=== PATIENT | female | born 2000 | race Caucasian/White ===

== ENCOUNTER 2020-09-04 13:56 | Outpatient (NON) | payer OTHER, SELFPAY ==
[2020-09-04 23:56] LABS: SARS-CoV-2 RNA PCR Negative
== END 2020-09-04 13:57 ==
PROVIDERS: Visit Provider Family Medicine
DX: Z20.828 Contact with and (suspected) exposure to other viral communicable diseases (principal)
CPT/HCPCS: 87635; C9803; U0003

== ENCOUNTER 2020-12-10 15:48 | Outpatient (CLI) | payer OTHER, SELFPAY | END 2020-12-10 15:49 | disposition home or self-care (01) | LOC: CHSLAB 15:50 | PROVIDERS: PCP Family Medicine; Visit Provider Nurse Practitioner Family | DX: Z34.90 Encounter for supervision of normal pregnancy, unspecified, unspecified trimester (principal) | CPT/HCPCS: 36415; 84702 ==

== ENCOUNTER 2020-12-22 07:19 | Emergency (ER) | payer OTHER, SELFPAY ==
--- NOTE | ~2020-12-22 | US_ITS ---
EXAMINATION: US OB <= 14 weeks fetus DATE: 12/22/2020 09:06 INDICATION: Abdominal pain. TECHNIQUE: Real-time transabdominal pelvic ultrasound was performed. COMPARISON: None. FINDINGS: The uterus measures 9.8 x 5.5 x 5.2 cm. There is an intrauterine gestational sac. A yolk sac is ident ified. The crown rump length measures 1.7 cm, which correlates with an estimated gestational a ge of 8 weeks and 1 day(s) (+/-) 5 day(s). heart motion is identified measuring 171 beats per m inute (bpm) by M-mode Doppler. The right ovary is not visualized. The left ovary measures 1.5 x 1.9 x 2.1 cm. There is no free fluid in the pelvis. IMPRESSION: 1. Single living intrauterine gestation with estimated date of delivery of 08/02/2021. Reviewed, dictated and finalized at location A. [employer] IMPRESSION: 1. Single living intrauterine gestation with estimated date of delivery of 07/16.
[2020-12-22 07:32] VITALS: TEMP 36.3
--- NOTE | 2020-12-22 07:55 | ED.ABDPAIN ---
HPI - Abdominal Pain General Chief Complaint: Abdominal Pain Stated Complaint: ABD PAIN, +PREG Time Seen by Provider: 12/22/20 07:35 Source: patient History of Present Illness HPI narrative: Patient is a 20 y/o female complaining of lower abdominal pain starting several hours ago. There is no alleviating or exacerbating factor. She describes her pain as cramping and rates it as 7/10. There is no pain radiation. She had one episode of vomiting. She has no diarrhea, dysuria or vaginal bleed. Of note, she state that she is and LMP was 09/14/20. Related Data Allergies Allergy/AdvReac Type Severity Reaction Status Date / Time latex Allergy Mild Rash Verified 12/22/20 07:34 Review of Systems Constitutional: Constitutional: Denies chills, Denies fever(s), Denies headache(s) and Denies weakness Eyes: Eyes: Denies blurry vision ENT: Denies headache(s) and Denies neck pain Cardiovascular: Cardiovascular: Denies chest pain and Denies dyspnea Respiratory: Respiratory: Denies cough and Denies dyspnea Gastrointestinal: Gastrointestinal: Reports abdominal pain, Denies diarrhea, Reports nausea and Reports vomiting Genitourinary: Genitourinary: Denies hematuria and Denies dysuria Musculoskeletal: Musculoskeletal: Denies back pain and Denies neck pain Neurologic: Denies headache(s) and Denies weakness PMFSH Past Medical History Medical History (Updated 12/22/20 @ 10:45 by Elaine Patel MD) Asthma Mild severity; childhood asthma Depression Overweight Surgical History Surgical History No significant past surgical history Family History Family History Mother Diabetes mellitus Social History Social History Smoking status: Never smoker Tobacco type: cigarettes Alcohol intake: never Substance use: never Substance use type: does not use Additional living arrangements comments: Has one child. Exam Const: General: no acute distress and well developed Orientation/consciousness: oriented to person, oriented to place, oriented to time and patient oriented x3 HENMT: Head: normocephalic Ears: external ears normal General nose exam: Normal external nose present Eyes: General: appearance normal, both eyes and all related structures Conjunctivae: conjunctivae normal Neck: Neck: normal visual inspection and full ROM Chest: Chest palpation & inspection: normal inspection of the chest and no tenderness Resp: Effort & Inspection: normal respiratory effort Auscultation: clear to auscultation bilaterally Cardio: Rate: regular rate Rhythm: regular rhythm GI: GI Palp: No abdominal tenderness and Yes Soft to palpation Skin: General skin exam: normal color and turgor normal Neuro: General: oriented to person, oriented to place, oriented to time and patient oriented x3 Cognition (Neuro): normal cognition Extrem: General: normal to inspection, full ROM and no pedal edema Psych: Appearance: grossly normal Mental Status: mental status grossly normal Affect: normal affect Course Vital Signs Vital signs: Vital Signs Temperature 36.3 C L 12/22/20 07:32 Temperature 37.2 C 12/22/20 09:14 Pulse Rate 87 12/22/20 09:14 Blood Pressure 112/69 12/22/20 09:14 Pulse Oximetry 100 12/22/20 09:14 MDM - Abdominal Pain Lab Data Result diagrams: 12/22/20 07:46 12/22/20 07:46 Labs: Lab Results 12/22/20 12/22/20 12/22/20 Range/Units 07:46 07:46 07:49 WBC 12.1 H (4.5-10.0) K/mm3 RBC 4.54 (4.2-5.4) M/mm3 Hgb 13.5 (12.0-15.0) g/dL Hct 38.8 (37.0-47.0) % MCV 85.5 (80-100) fl MCH 29.7 (26-34) pg MCHC 34.8 (32-36) g/dl RDW 12.4 (11.5-14.5) % Plt Count 270 (150-375) k/mm3 MPV 9.2 (7.4-10.4) fl Immature Gran % (Auto) 0.2 (0-0.5) % Neut % (Auto)
[2020-12-22 07:57] LABS: Basophils Percent Auto 0.2 % (0.2-1.2); Eosinophils Percent Auto 0.2 % (0-4.4); Hematocrit 38.8 % (37.0-47.0); Hemoglobin 13.5 g/dL (12.0-15.0); Immature Granulocyte Absolute 0.03 K/mm3 (0.00-0.031); Immature Granulocyte Percent A 0.2 % (0-0.5); Lymphocytes Absolute Auto 1.03 K/mm3 (0.9-3.2); Lymphocytes Percent Auto 8.5 % (18.3-44.2); Mean Corpuscular HGB Conc 34.8 g/dl (32-36); Mean Corpuscular Hemoglobin 29.7 pg (26-34); Mean Corpuscular Volume 85.5 fl (80-100); Mean Platelet Volume 9.2 fl (7.4-10.4); Monocytes Absolute Auto 0.4 K/mm3 (0.1-0.6); Monocytes Percent Auto 3.1 % (2.6-8.5); Neutrophils Absolute Auto 10.6 K/mm3 (1.3-6.7); Neutrophils Percent Auto 87.8 % (45.5-73.1); Platelet Count Result 270 k/mm3 (150-375); Red Blood Count 4.54 M/mm3 (4.2-5.4); Red Cell Distribution Width 12.4 % (11.5-14.5); White Blood Count 12.1 K/mm3 (4.5-10.0)
[2020-12-22 08:08] LABS: Alanine Aminotransferase 19 U/L (4-35); Albumin Level 4.2 g/dL (3.5-5.1); Alkaline Phosphatase 54 U/L (38-126); Anion Gap 6 mmol/L (8-16); Aspartate Amino Transferase 21 U/L (14-36); Bilirubin,Total 0.2 mg/dL (0.2-1.3); Blood Urea Nitrogen 12 mg/dL (7-17); Calcium 8.8 mg/dL (8.4-10.2); Carbon Dioxide 23 mmol/L (22-30); Chloride 104 mmol/L (98-107); Estimated CRCL calculation 126 ml/min; Estimated Glomerular Filt Rate > 60; Glucose 129 mg/dL (65-105); Sodium 133 mmol/L (137-145)
[2020-12-22 08:13] LABS: Add Urine Microscopic? YES; Appearance Urine Clear (Clear); Bacteria Urine 2+ /hpf; Bilirubin Urine Negative (Negative); Blood Urine Negative (Negative); Color Urine Yellow (Yellow); Glucose Urine UA Negative (Negative); Ketones Urine Negative (Negative); Leukocyte Esterase Ur Trace LEU/UL (Negative); Mucus Urine Rare /lpf; Nitrate Urine Negative (Negative); Protein Urine Negative (Negative); RBC Urine 0-2 /hpf (0-2); Specific Grav Ur 1.019 (1.001-1.035); Squamous Epithelial Cell Urine Few /hpf (Few); Urobilinogen Urine Negative mg/dL (<2.0)
[2020-12-22 09:14] VITALS: BP 112/69; PULSE 87; TEMP 37.2; O2SAT 100
[2020-12-22 10:59] VITALS: BP 124/76; PULSE 82; O2SAT 98
== END 2020-12-22 11:00 | disposition home or self-care (01) ==
PROVIDERS: Emergency Provider Emergency Medicine; PCP Family Medicine
DX: O26.891 Other specified pregnancy related conditions, first trimester (principal); R10.2 Pelvic and perineal pain; O23.41 Unspecified infection of urinary tract in pregnancy, first trimester; O99.511 Diseases of the respiratory system complicating pregnancy, first trimester; J45.909 Unspecified asthma, uncomplicated; O99.211 Obesity complicating pregnancy, first trimester; E66.3 Overweight; Z3A.08 8 weeks gestation of pregnancy
CPT/HCPCS: 36415; 76801; 80053; 81001; 81025; 84702; 85025; 86900; 86901; 87086; 99284

== ENCOUNTER 2021-07-23 01:15 | Inpatient (IN) | payer OTHER, SELFPAY ==
[2021-07-23] VITALS (90 sets, daily range): BP systolic 90–173; BP diastolic 44–137; PULSE 68–273; RESP 16–18; TEMP 36.5–37; O2SAT 95–100; BMI 35.9
[2021-07-23 02:32] LABS: Basophils Percent Auto 0.1 % (0.2-1.2); Eosinophils Percent Auto 0.3 % (0-4.4); Hemoglobin 12.1 g/dL (12.0-15.0); Immature Granulocyte Absolute 0.06 K/mm3 (0.00-0.031); Immature Granulocyte Percent A 0.4 % (0-0.5); Lymphocytes Absolute Auto 2.15 K/mm3 (0.9-3.2); Lymphocytes Percent Auto 15.9 % (18.3-44.2); Mean Corpuscular HGB Conc 33.6 g/dl (32-36); Mean Corpuscular Volume 83.3 fl (80-100); Mean Platelet Volume 9.9 fl (7.4-10.4); Monocytes Absolute Auto 0.9 K/mm3 (0.1-0.6); Monocytes Percent Auto 6.7 % (2.6-8.5); Neutrophils Absolute Auto 10.4 K/mm3 (1.3-6.7); Neutrophils Percent Auto 76.6 % (45.5-73.1); Platelet Count Result 291 k/mm3 (150-375); Red Blood Count 4.32 M/mm3 (4.2-5.4); White Blood Count 13.5 K/mm3 (4.5-10.0)
--- NOTE | 2021-07-23 02:40 | LDADM ---
This patient, Nitesh Elizabeth, was admitted to Labor/Delivery/Recovery 105 on 07/23/21 at 01:15. Plans for labor, pain management and were discussed with patient. Patient/family oriented to hospital policies and general routines including ID bracelet, bed and alarms, visiting hours, pain management, procedures, bathroom and other care routines, personal items, smoking policy, room service/diet and guest tray routines, security routines, and visiting hours. Patient/Family are encouraged to report perceived risks to care and to ask questions if they do not understand what they are told or what they should do. See OBIX for further documentation.
[2021-07-23] MEDS: LACTATED RINGERS 1,000 ML 125 ML IV CONT ×2 (03:10→06:20)
--- NOTE | 2021-07-23 03:37 | WPDANESEPP ---
Anes - Eval Pre Procedure Procedure: labor epidural Date/Time: 07/23/21 03:37 Surgeon: ricco Preop Diagnosis: pain during labor Pre Op Diagnosis: leaking Patient Data Age: 21 Gender: F Height: 1.63 m Weight: 95 kg Last Vital Signs Pulse 95 07/23/21 03:31 BP 131/74 07/23/21 03:31 Allergies Allergy/AdvReac Type Severity Reaction Status Date / Time latex Allergy Mild Rash Verified 12/22/20 07:34 Home Medications Medication Instructions Recorded Confirmed Type vits no.126-ferrous fum 1 tablet PO DAILY #30 tablet 12/10/20 12/10/20 Rx 28 mg iron-folic acid 800 mcg tablet ondansetron 4 mg disintegrating 4 mg PO Q8H PRN #30 tablet 12/17/20 12/17/20 Rx tablet Laboratory Tests 07/23/21 07/23/21 02:23 02:23 WBC 13.5 K/mm3 H K/mm3 (4.5-10.0) RBC 4.32 M/mm3 M/mm3 (4.2-5.4) Hgb 12.1 g/dL g/dL (12.0-15.0) Hct 36.0 % L % (37.0-47.0) MCV 83.3 fl fl (80-100) MCH 28.0 pg pg (26-34) MCHC 33.6 g/dl g/dl (32-36) RDW 13.0 % % (11.5-14.5) Plt Count 291 k/mm3 k/mm3 (150-375) MPV 9.9 fl fl (7.4-10.4) Immature Gran % (Auto) 0.4 % % (0-0.5) Neut % (Auto) 76.6 % H % (45.5-73.1) Lymph % (Auto) 15.9 % L % (18.3-44.2) [place] % (Auto) 6.7 % % (2.6-8.5) Eos % (Auto) 0.3 % % (0-4.4) Baso % (Auto) 0.1 % L % (0.2-1.2) Lymph # (Auto) 2.15 K/mm3 K/mm3 (0.9-3.2) [place] # (Auto) 0.9 K/mm3 H K/mm3 (0.1-0.6) Eos # (Auto) 0.0 K/mm3 K/mm3 (0-0.3) Baso # (Auto) 0.0 K/mm3 K/mm3 (0.0-0.1) Abs Immat Gran (auto) 0.06 K/mm3 H K/mm3 (0.00-0.031) Absolute Neuts (auto) 10.4 K/mm3 H K/mm3 (1.3-6.7) Absolute Nucleated RBC 0.0 K/mm3 K/mm3 (0.0-0.012) Nucleated RBC % 0.0 % % (0.0-0.2) RPR Pending Patient hx anesthesia problems: none Family hx anesthesia problems: none [facility] Past Medical History Medical History (Updated 12/23/20 @ 00:00 by Toño Otto) Asthma Mild severity; childhood asthma Depression Overweight Surgical History Surgical History No significant past surgical history Family History Family History (Updated 07/01/21 @ 13:51 by Sol Hoang RN) Mother Diabetes mellitus Father Parkinson disease Other Patient's father is Social History Social History Smoking status: Never smoker Tobacco type: cigarettes Alcohol intake: never Substance use: never Substance use type: does not use Additional living arrangements comments: Has one child. Spiritual care concerns: No Exam Day of Procedure 07/23/21 03:37
[2021-07-23] MEDS: FAMOTIDINE 20 MG/2 ML VIAL IV PUSH (03:57)
[2021-07-23 04:30] LABS: Amphetamine Screen Urine Negative (Negative); Barbiturate Screen Urine Negative (Negative); Benzodiazepines Screen Urine Negative (Negative); Cannabinoid Screen Urine Positive (Negative); Cocaine Screen Urine Negative (Negative); Methadone Screen Urine Negative (Negative); Opiate Screen Urine Negative (Negative); Phencyclidine Screen Urine Negative (Negative)
--- NOTE | 2021-07-23 06:09 | WPDHPUPDATE1 ---
History and Physical Update Update Date/Time: 07/23/21 06:09 21 yo at 38w5d who presents with SROM. Pt reports SROM at 2345. She endorses good FM. She denies any vaginal bleeding. She is having regular contractions. Her has been uncomplicated thus far. History and Physical has been reviewed, including an updated exam of the patient. There are NO changes in the patient's condition. Risks, benefits, and alternatives have been discussed and questions answered. Patient agrees to proceed with procedure. A/P: 21yo at 38w5d who presents after SROM admit to L&D routine admission orders Rh+ GBS neg THC+ on UDS FHT cat 1 regular contractions continuous EFM expectant management
[2021-07-23] MEDS: OXYTOCIN 30 UNITS/NS 500 ML 30 UNITS/500 ML BAG IV CONT (06:20)
[2021-07-23 08:01] LABS: Rapid Plasma Reagin Non-Reactive (NonReactive)
[2021-07-23] MEDS: diphenhydrAMINE HCl CAP 25 MG CAPSULE PO (08:40)
--- NOTE | 2021-07-23 09:13 | PM.OBPRVD ---
OB - Delivery Note Procedure Delivery date: 07/23/21 Intrapartal events: None Induction method: none Delivery monitor: external FHT Route of delivery: Episiotomy description: None Laceration Description: None Quantitative Blood Loss (ml): 58 Anesthesia type: Epidural Disposition: floor Baby Date of : 07/23/21 Time of : 09:06 Weeks of gestation at delivery: 38 Infant gender: Male presentation: vertex position: Right Occiput Anterior Placenta delivery description: Spontaneous cord vessel description: 3 Vessels and Nuchal Cord score one minute: 9 score five minutes: 9
[2021-07-23] MEDS: OXYTOCIN 30 UNITS/NS 500 ML 30 UNITS/500 ML BAG 125 UNITS IV CONT (09:37)
--- NOTE | 2021-07-23 12:23 | PC.NURSE ---
This patient, Nitesh Elizabeth, was received from [facility] on 07/23/21 at 1223. Patient/family oriented to unit policies and routines
--- NOTE | 2021-07-23 12:50 | PC.NURSE ---
Mother called out for assist with feeding, reporting did not have a successful first feeding he was on and off. Mother reports difficulties with first child. is able to freely thrust tongue past gum ridge and flange both lips, small frenulum noted. Skin is intact on both nipples, no redness and bruising noted. Reviewed feeding cues, frequencies, duration of feedings, feeding elimination flow sheet, and signs of adequate intake. Demonstrated stimulation techniques to wake infant for feeding. Assisted with to breast. Reviewed positioning/alignment in cross cradle, holding breast in ?U? hold and guided asymmetrical latch on. Discussed rational for each. able to latch correctly. Reviewed signs of a correct latch, effective nursing and suck swallow ratio. Infant nursed a few short bursts with sleepy suckling. Several attempts made without a deep latch. Suggest ed skin to skin for 15-20 minutes and attempt.
--- NOTE | 2021-07-23 13:20 | PC.NURSE ---
Attempt infant to breast, remains sleepy and gaggy, large amount of mucus spit up. Several attempts made, was unable to draw nipple in. Attempt using nipple shield would hold nipple in his mouth with no suckling noted. Infant spit up second time during attempt. Parents wish to be supplemented. Mother making attempts to bottle feed, is gaggy. Suggested mother allow infant to rest for a few minutes then complete feeding calling out for primary RN in 20 minutes.
--- NOTE | 2021-07-23 14:07 | PCCCNOTE ---
Per Care Coordination: Received notification that pt. tested positive for THC upon admission to delivery baby boy. Pt. reports using THC for her nausea. Baby's meconium will be tested. CAROLYN Cain at bedside when CC spoke with pt. Pt. reports she and will be living with Ant and 2 year old son Inderjit in [place]. Pt. reports having all necessary baby supplies and that her mother Dionne is very helpful when needed. Pt. reports she has extended family that are helpful as well. Pt. reports being set up with WIC and [facility] [place]. resources provided. [facility] Online Report made #[id number]. BELA Naylor updated.
[2021-07-23] MEDS: IBUPROFEN 600 MG TABLET PO (16:58)
[2021-07-23] MEDS: ACETAMINOPHEN 325 MG TABLET 650 MG PO (16:59)
[2021-07-24] MEDS: IBUPROFEN 600 MG TABLET PO ×3 (04:53→19:28)
[2021-07-24 05:50] LABS: Hematocrit 35.7 % (37.0-47.0); Hemoglobin 11.6 g/dL (12.0-15.0)
[2021-07-24 07:32] VITALS: BP 117/77; PULSE 95; RESP 18; TEMP 36.6
--- NOTE | 2021-07-24 07:42 | PM.OBPNVD ---
OB - PN: Subj Subjective Date/time seen: 07/24/21 07:42 Patient comments: no complaints and pain well controlled baby status: doing well and nursing well OB - PN: Obj Data Labs CBC & Chem 7: 07/24/21 04:47 Labs: Laboratory Results - last 24 hr 07/23/21 07/24/21 02:23 04:47 Hgb 11.6 L Hct 35.7 L RPR Non-reactive OB - PN A/P Plan day: 1 Plan: routine care Time Spent With Patient Time: Total time spent is greater than 50% in coordination of care (as documented) at patient's floor/unit and/or counseling patient: Time with patient: less than 15 minutes Review of Systems Review of Systems: All systems reviewed & are unremarkable except as noted in HPI and below Exam Const: General: no acute distress Eyes: General: appearance normal, both eyes and all related structures Neck: Neck: supple and no JVD Thyroid: thyroid normal Resp: Effort & Inspection: normal respiratory effort Auscultation: clear to auscultation bilaterally Cardio: Rate: regular rate Rhythm: regular rhythm GI: Inspection: non-distended GI Palp: Yes Soft to palpation, No Tenderness to palpation present (GI) and No Guarding due to palpation present (GI) Auscultation: normal bowel sounds : General: Yes bladder normal to palpation External Female Exam: normal external appearance Speculum Exam - Vagina: normal vaginal discharge and No vaginal bleeding Speculum Exam - Cervix: nontender Bimanual exam- vagina & uterus: bladder normal to palpation and No Cervical tenderness present OB/external & speculum: No vaginal bleeding Skin: General skin exam: no rashes or lesions noted Extrem: General: normal to inspection and no edema Psych: Mental Status: mental status grossly normal Affect: normal affect
--- NOTE | 2021-07-24 10:26 | WPDANLDPN2 ---
Anes-Prog Note L&D Date/Time: 07/24/21 10:26 Comfortable throughout: labor and delivery Neuraxial method: epidural Epidural/Spinal procedure site: clean & non-tender Neuro status: Neuro function grossly intact. Cardiovascular status: normal Respiratory status: normal Airway patency: baseline Mental status: baseline Post-Op hydration status: normal Vital Signs: Last Vital Signs Temp 36.6 C 07/24/21 07:32 Pulse 95 07/24/21 07:32 Resp 18 07/24/21 07:32 BP 117/77 07/24/21 07:32 Pulse Ox 99 07/23/21 17:08 Pain score (VAS): 0 Post-procedural complaints: none Patient feedback: Patient satisfied with anesthetic care.
--- NOTE | 2021-07-24 11:45 | PC.NURSE ---
Consult with pt., mother reports is not latching to breast she is bottle feeding and pumping. Offered to assist with next feeding, mother reports she will skin to skin with self expression of colostrum then bottle feed. Infant has difficulties with suck swallow on bottle and states it takes a long time to bottle feed and does not want to make infant tired before bottle feeding. Suggested mother attempt 5 minutes at breast before bottle feeding. Reviewed breast pump care and usage, pumping schedule, nipple care, and collection and storage of breast milk. Encouraged [id number], breast massage and manual expression to stimulate supply. Assessed patient for correct flange size, placement and draw. Patient verbalizes and demonstrates understanding of instructions.
[2021-07-24 20:12] VITALS: BP 120/82; PULSE 84; RESP 18; TEMP 36.6; O2SAT 99
--- NOTE | 2021-07-25 07:13 | PM.OBPNVD ---
OB - PN: Subj Subjective Date/time seen: 07/25/21 07:13 Patient comments: no complaints and pain well controlled baby status: doing well OB - PN: Obj Data Labs CBC & Chem 7: 07/24/21 04:47 OB - PN A/P Plan day: 2 Plan: routine care, discharge home and follow up 6 weeks Time Spent With Patient Time: Total time spent is greater than 50% in coordination of care (as documented) at patient's floor/unit and/or counseling patient: Time with patient: less than 15 minutes Review of Systems Review of Systems: All systems reviewed & are unremarkable except as noted in HPI and below Exam Const: General: no acute distress Eyes: General: appearance normal, both eyes and all related structures Neck: Neck: supple and no JVD Thyroid: thyroid normal Resp: Effort & Inspection: normal respiratory effort Auscultation: clear to auscultation bilaterally Cardio: Rate: regular rate Rhythm: regular rhythm GI: Inspection: non-distended GI Palp: Yes Soft to palpation, No Tenderness to palpation present (GI) and No Guarding due to palpation present (GI) Auscultation: normal bowel sounds : General: Yes bladder normal to palpation External Female Exam: normal external appearance Speculum Exam - Vagina: normal vaginal discharge and No vaginal bleeding Speculum Exam - Cervix: nontender Bimanual exam- vagina & uterus: bladder normal to palpation and No Cervical tenderness present OB/external & speculum: No vaginal bleeding Skin: General skin exam: no rashes or lesions noted Extrem: General: normal to inspection and no edema Psych: Mental Status: mental status grossly normal Affect: normal affect
--- NOTE | 2021-07-25 07:13 | PM.DS ---
DS: Admitting Diagnosis Discharge Date 07/25/2021 Admitting Diagnosis term iup labor DS: Summary Hospital Course Hospital Course: The patient was admitted at 38 weeks gestation active labor. She underwent spontaneous vaginal delivery which was unremarkable. Two day course was unremarkable. She remained afebrile. She was, voiding without difficulty, ambulating, generally without complaints Time Spent with Patient Time attestation: Total time spent providing and/or coordinating discharge services: Exam Const: General: no acute distress Eyes: General: appearance normal, both eyes and all related structures Neck: Neck: supple and no JVD Thyroid: thyroid normal Resp: Effort & Inspection: normal respiratory effort Auscultation: clear to auscultation bilaterally Cardio: Rate: regular rate Rhythm: regular rhythm GI: Inspection: non-distended GI Palp: Yes Soft to palpation, No Tenderness to palpation present (GI) and No Guarding due to palpation present (GI) Auscultation: normal bowel sounds : General: Yes bladder normal to palpation External Female Exam: normal external appearance Speculum Exam - Vagina: normal vaginal discharge and No vaginal bleeding Speculum Exam - Cervix: nontender Bimanual exam- vagina & uterus: bladder normal to palpation and No Cervical tenderness present OB/external & speculum: No vaginal bleeding Skin: General skin exam: no rashes or lesions noted Extrem: General: normal to inspection and no edema Psych: Mental Status: mental status grossly normal Affect: normal affect Discharge Plan Discharge Attending physician on discharge: Rufus Pennington Discharging Clinician: Rufus Pennington Patient Disposition: Home, Self-Care Activity: may shower, no straining and pelvic rest Diet: heart healthy Wound Care Instructions: follow printed instructions Patient Instructions: Antibiotic Form Stand Alone Forms: General Discharge Information Follow-up/Referrals: Rufus Pennington MD [Physician] - Discharge Medications: Continued Classic 28 mg iron- 800 mcg tablet 1 tablet PO DAILY Qty: 30 RF: 7 ondansetron 4 mg tablet,disintegrating 4 mg PO Q8H PRN (Reason: nausea and vomiting) Qty: 30 RF: 0 Date of admission: 07/23/21 01:15 Primary Care Provider: Nikos Arana Admitting Provider: Rufus Pennington Attending physician on admission: Rufus Pennington Condition: Stable
[2021-07-25 08:10] VITALS: BP 121/67; PULSE 97; RESP 16; TEMP 36.8; O2SAT 98
--- NOTE | 2021-07-25 08:45 | PC.NURSE ---
Mother is independently putting infant to breast most feedings. She denies any nipple discomfort, is feeding as required and waking to feed if needed. has not had an effective feeding and bottle fed after all feedings. is currently meeting outcomes for weight, output, jaundice and feeding frequencies. Infant is more awake and eager to make some eager attempts, he is unable to maintain latch. Infant continues to be supplemented after all feedings for ineffective latch. is more organized and bottle feeding well the last 12 hours. Mother continues to pump without difficulties or discomfort after all feedings due to ineffective feeding. Mother states she feels confident to continue current feeding plan at home. Mother has her own double electric pump for home use. Discussed increasing supplementation as infant requires to satisfactions. Reviewed paced feeding and suggested to stop when is satisfied, as long as is having required output. With increased supplementation may not want to feed for 4 hours. Mother will continue to pump on feeding schedule and will increase session to 20 minutes if pumping every 4 hours. Reviewed once mother?s milk is established and infant is effectively feeding may have increased intake with nursing. If infant is effective feeding with long draws and frequent swallowing noted , may be ready to decrease/discontinue supplementation. Advised not to discontinue supplement until ICP, Follow-Up RN or LC has a pre/post weighted evaluation of feeding. Mother reports she is determined to work to continue and will contact LC or her [facility] peer counselor for assist as infant is latching and increasing effort to nurse. Reviewed transition to breast milk, signs of adequate intake, and engorgement/relief. Instructed to call ICP if intake/output less than required. Reviewed regular medications mother is taking. Information provided per Jennifer. Reviewed community resources on the [facility] website and in the Mom/Baby guide. Information on outpatient services provided. Mother has no further questions at this time. Requested mother call out for assist with next feeding before discharge.
--- NOTE | 2021-07-25 10:00 | PC.NURSE ---
Patient instructed to view the discharge video Mother & Baby Care, The First Two Weeks . Patient was given the opportunity and encouraged to ask questions. Patient verbalized understanding of information shared and has been given the mother/baby guide for home reference.
[2021-07-28 10:59] VITALS: BP 118/85; PULSE 102; RESP 16; TEMP 37.3; O2SAT 98
== END 2021-07-25 12:55 | disposition home or self-care (01) | DRG 560 ==
LOC: ANHLDR 02:22 → ANHOB2 12:32
PROVIDERS: Admitting Provider Student in an Organized Health Care Education/Training Program; PCP Family Medicine; Visit Provider Obstetrics & Gynecology
DX: O69.81X0 Labor and delivery complicated by cord around neck, without compression, not applicable or unspecified (principal); Z3A.38 38 weeks gestation of pregnancy; Z37.0 Single live birth
CPT/HCPCS: 36415; 80307; 84112; 85014; 85018; 85025; 86592; 86850; 86900; 86901; A9270; J2590; J2795; J7120

== ENCOUNTER 2023-09-16 10:55 | Outpatient (CLI) | payer OTHER, SELFPAY ==
--- NOTE | ~2023-09-16 | XR_ITS ---
XR lumbar spine 2-3V DATE: 09/16/2023 11:12 INDICATION: Chronic back pain for 6 months TECHNIQUE: AP, lateral, coned lateral lumbosacral views COMPARISON: None FINDINGS: There is minimal levoscoliosis. No fracture or bone destruction. The lumbar pedicles are intact. Lumbar and lumbosacral interspaces are well preserved. The sacroiliac joints are intact. IMPRESSION: Minimal levoscoliosis Probable 4 mm calcification of lower pole of left kidney Reviewed, dictated and finalized at location L.
== END 2023-09-16 10:56 | disposition home or self-care (01) ==
LOC: CHSIMG 10:57
PROVIDERS: PCP Nurse Practitioner Family; Visit Provider Nurse Practitioner Family
DX: M54.9 Dorsalgia, unspecified (principal); G89.29 Other chronic pain; M41.86 Other forms of scoliosis, lumbar region
CPT/HCPCS: 72100

== ENCOUNTER 2023-09-16 11:31 | Outpatient (NON) | payer OTHER, SELFPAY ==
[2023-09-16 12:00] LABS: Bilirubin Urine Negative (Negative); Blood Urine Negative (Negative); Color Urine Light Yellow (Yellow); Glucose Urine UA Negative (Negative); Ketones Urine Negative (Negative); Leukocyte Esterase Ur 3+ LEU/UL (Negative); Nitrate Urine Negative (Negative); Protein Urine Negative (Negative); Specific Grav Ur 1.025 (1.010-1.020); Urobilinogen Urine 0.2 mg/dL (0.2-1.0)
[2023-09-16 12:06] LABS: Add Urine Microscopic? YES; Appearance Urine Slightly Cloudy (Clear); RBC Urine None seen /hpf (0-2); WBC Urine 16-20 /hpf (0-3)
[2023-09-16 12:07] LABS: Bacteria Urine 3+ /hpf; Squamous Epithelial Cell Urine Many /hpf (Few)
== END 2023-09-16 11:32 | disposition home or self-care (01) ==
LOC: CHSLAB 11:33
PROVIDERS: Visit Provider Nurse Practitioner Family
DX: R39.9 Unspecified symptoms and signs involving the genitourinary system (principal)
CPT/HCPCS: 81001; 87086; 87088

== ENCOUNTER 2023-09-28 16:52 | Outpatient (NON) | payer OTHER, SELFPAY | END 2023-09-28 16:53 | disposition home or self-care (01) | LOC: CHSLAB 16:53 | PROVIDERS: Visit Provider Nurse Practitioner Family | DX: L02.214 Cutaneous abscess of groin (principal) | CPT/HCPCS: 87070; 87147; 87186; 87205 ==

== ENCOUNTER 2024-08-03 11:23 | Outpatient (CLI) | payer OTHER, SELFPAY ==
[2024-08-03 11:38] LABS: Hematocrit 36.9 % (35.0-49.0); Hemoglobin 12.6 g/dL (12.0-15.0); Immature Granulocyte Absolute 0.02 K/mm3 (0.00-0.00); Immature Granulocyte Percent A 0.4 % (0.0-0.0); Lymphocytes Absolute Auto 1.88 K/mm3 (1.10-4.50); Mean Corpuscular HGB Conc 34.1 g/dL (32-36); Mean Corpuscular Hemoglobin 29.2 pg (27.0-31.0); Mean Corpuscular Volume 85.4 fL (78.0-102.0); Mean Platelet Volume 8.3 fl (9.2-11.8); Monocytes Absolute Auto 0.39 K/mm3 (0.10-0.90); Monocytes Percent Auto 7.1 % (2.0-11.0); Neutrophils Absolute Auto 3.24 K/mm3 (1.70-7.20); Neutrophils Percent Auto 58.5 % (50.0-70.0); Platelet Count Result 241 K/mm3 (150-420); Red Blood Count 4.32 M/mm3 (4.20-5.40); Red Cell Distribution Width 12.7 % (11.6-14.4); White Blood Count 5.5 K/mm3 (4.8-10.8)
[2024-08-03 12:33] LABS: Alanine Aminotransferase 69 U/L (14-59); Albumin Level 3.8 g/dL (3.4-5.0); Alkaline Phosphatase 72 U/L (46-116); Anion Gap 7 mmol/L (4-12); Aspartate Amino Transferase 29 U/L (15-37); Bilirubin,Total 0.2 mg/dL (0.00-1.00); Blood Urea Nitrogen 11 mg/dL (7-18); Calcium 8.6 mg/dL (8.5-10.1); Carbon Dioxide 28 mmol/L (21-32); Chloride 103 mmol/L (98-108); Estimated Glomerular Filt Rate > 60; Glucose 76 mg/dL (70-99); Iron 34 ug/dL (50-170); Lactate Dehydrogenase 211 U/L (81-234); Osmolality Calculated 284 mOsm/kg (285-295); Potassium 4.3 mmol/L (3.5-5.1); Sodium 138 mmol/L (136-145); Total Protein 6.9 g/dL (6.4-8.2)
[2024-08-03 12:39] LABS: HIV 1 P24 AG Negative (Negative); HIV 1/2 AB Negative (Negative)
[2024-08-05 06:18] LABS: Hepatitis B Surface Antigen NON-REACTIVE (NON-REACTIVE)
[2024-08-05 07:09] LABS: Hepatitis A Antibody IgM NON-REACTIVE (NON-REACTIVE); Hepatitis B Core Antibody NON-REACTIVE (NON-REACTIVE); Hepatitis C Virus Antibody NON-REACTIVE (NON-REACTIVE)
== END 2024-08-03 11:24 | disposition home or self-care (01) ==
PROVIDERS: PCP Nurse Practitioner Family; Visit Provider Nurse Practitioner Family
DX: R16.1 Splenomegaly, not elsewhere classified (principal)
CPT/HCPCS: 36415; 80053; 80074; 83540; 83615; 85025; 87806

== ENCOUNTER 2025-04-24 13:33 | Outpatient (CLI) | payer OTHER, SELFPAY ==
[2025-04-24 13:43] LABS: Mean Corpuscular HGB Conc 34.2 g/dL (32-36); Mean Corpuscular Hemoglobin 29.8 pg (27.0-31.0); Mean Corpuscular Volume 87.2 fL (78.0-102.0); Mean Platelet Volume 8.3 fl (9.2-11.8); Platelet Count Result 290 K/mm3 (150-420); Red Blood Count 4.36 M/mm3 (4.20-5.40); Red Cell Distribution Width 12.4 % (11.6-14.4); White Blood Count 7.1 K/mm3 (4.8-10.8)
[2025-04-24 14:08] LABS: Hemoglobin A1C < 4.7 % (<5.7)
[2025-04-24 14:15] LABS: Alanine Aminotransferase 20 U/L (6-35); Albumin Level 4.9 g/dL (3.5-5.1); Alkaline Phosphatase 77 U/L (38-126); Anion Gap 7 mmol/L (4-12); Aspartate Amino Transferase 29 U/L (14-36); Bilirubin,Total 0.5 mg/dL (0.2-1.3); Blood Urea Nitrogen 13 mg/dL (7-17); Calcium 9.2 mg/dL (8.4-10.2); Carbon Dioxide 26 mmol/L (22-30); Chloride 106 mmol/L (98-107); Cholesterol 220 mg/dL (0-200); Estimated Glomerular Filt Rate > 60; Glucose 84 mg/dL (65-110); HDL Direct 58 mg/dL; LDL Cholesterol Calculated 142 mg/dL (<130); Osmolality Calculated 287 mOsm/kg (285-295); Potassium 4.4 mmol/L (3.4-5.0); Sodium 139 mmol/L (137-145); Total Protein 7.1 g/dL (6.3-8.2); Triglycerides 98 mg/dL (<150)
== END 2025-04-24 13:34 | disposition home or self-care (01) ==
LOC: CHSLAB 13:34
PROVIDERS: PCP Nurse Practitioner Family; Visit Provider Nurse Practitioner Family
DX: Z00.00 Encounter for general adult medical examination without abnormal findings (principal)
CPT/HCPCS: 36415; 80053; 80061; 83036; 84443; 85027

== ENCOUNTER 2025-05-01 12:37 | Outpatient (CLI) | payer OTHER, SELFPAY | END 2025-05-01 12:38 | disposition home or self-care (01) | LOC: ANHSURGERY 12:42 | PROVIDERS: PCP Nurse Practitioner Family; Visit Provider Obstetrics & Gynecology | DX: Z01.812 Encounter for preprocedural laboratory examination (principal); R10.2 Pelvic and perineal pain; N92.6 Irregular menstruation, unspecified | CPT/HCPCS: 36415; 86850; 86900; 86901 ==

== ENCOUNTER 2025-05-03 00:49 | Day surgery (SDC) | payer OTHER, SELFPAY ==
[2025-04-30 13:21] VITALS: BMI 32.8
--- NOTE | 2025-04-30 13:22 | PC.NURSE ---
Report to the Outpatient Waiting Room, entrance under the green pavilion located off [facility], at time _0600_ on date _[id number]_. Planned Procedure Time: _0730_.? Time changes happen often and if your time is changed the preop area will call you the afternoon before. - You and your visitor will be asked to self-screen and do not enter if you have any COVID symptoms. Please call surgeon if you need to reschedule. - A mask is optional within the hospital at this time. Patients may have clear liquids (water, carbonated beverages, clear teas, apple juice) until 3 hours prior to surgery with a maximum of 20 ounces. - No food from midnight until time of surgery and no smoking, or chewing tobacco (or any form of nicotine). No chewing gum, candy or mints. Take only the following medications with a SIP of water on the morning of surgery: ___Venlafaxine, Doxycycline and if needed Albuterol and or Flonase. DO NOT STOP ANY OF YOUR OTHER PRESCRIPTION MEDICATIONS PRIOR TO SURGERY EXCEPT THE FOLLOWING Hold all vitamins and supplements for 3 days per anesthesiologist. Medications to discontinue per physician Date to take last dose Please no make-up, nail sami, hairspray, perfume, deodorant, or body powder the day of surgery.? No jewelry (including any body piercings) or valuables the day of surgery, leave them at home.? Please take a shower or bath the night before, or the morning of, surgery with an antibacterial soap.? Wear comfortable, loose fitting clothing.? - Jewelry must be removed prior to entering the operating room.? Rings and piercings that are not removed may be cut off. - The hospital will not accept responsibility for valuables.? - Please leave all valuables, including medications, at home the day of surgery. If you are going home after surgery, a licensed commercial driver must drive you home.? - NO public transportation without another adult if you receive anesthesia. - We recommend that an adult stay with you for 24 hours following discharge. - We also recommend that you do not drive, make important decision, drink alcoholic beverages, or take any drugs that were not prescribed by your health care provider for at least 24 hours after your discharge time. Follow any additional instructions given to you from your surgeon. Telephone instructions given to __Nitesh___and asked if any additional questions and then verbalized understanding. Patient advised to call surgeon office or pre surgery nurse liaison [phone] if any additional questions.
--- NOTE | 2025-05-02 07:17 | P.HP_ITS ---
H&P: HPI History of Present Illness Date/Time: 05/02/25 07:17 Chief Complaint: Pelvic pain Narrative: This is a a 25 2 para 2 admitted for diagnostic laparoscopy secondary to severe pelvic pain and dyspareunia. She has pain with intercourse and chronic pelvic discomfort she will undergo diagnostic laparoscopy. Risks and benefits reviewed including but not exclusive of , aspiration pneumonia, bleeding, t ransfusion, perforation injury to bowel, bladder, ureters, or other internal organs with need for laparotomy and repair. She received the ACOG handout entitled laparoscopy. She had all questions answered. She asked to proceed. Review of Systems Review of Systems: All systems reviewed & are unremarkable except as noted in HPI and below PMFSH Past Medical History Medical History (Updated 05/02/25 @ 07:19 by Rufus Carmona MD) Overweight Depression Asthma Mild severity; childhood asthma Surgical History Surgical History No significant past surgical history Family History Family History Mother Diabetes mellitus Father Parkinson disease Other Patient's father is Social History Social History Smoking status: Never smoker Tobacco type: cigarettes Alcohol intake: current Substance use: never Substance use type: does not use Lack of Transportation: No Lack of Food: Never True Current Housing: I Do Not Have Housing Concerned About Future Housing: No Difficulty Paying Gas/Electric Bills: No Difficulty Paying for Meds: No Currently Unemployed: No Education: High School Diploma/GED Difficulty w/ Childcare or Family Care: No Living arrangements: with family Additional living arrangements comments: Has one child. Spiritual care concerns: No Meds Home Medications and Allergies Home Medications ?Medication ?Instructions ?Recorded ?Confirmed ?Type albuterol sulfate 90 mcg/actuation See Rx Instructions .Route 07/06/22 04/30/25 Rx aerosol inhaler .COMPLEX #8.5 ea ferrous sulfate 325 mg (65 mg 325 mg PO DAILY #30 tabs 08/03/24 04/30/25 Rx iron) tablet fluticasone propionate 50 See Rx Instructions .Route 12/11/24 04/30/25 Rx mcg/actuation nasal .COMPLEX #16 mL spray,suspension venlafaxine 150 mg See Rx Instructions .Route 04/04/25 04/30/25 Rx capsule,extended release 24 hr .COMPLEX #30 caps clindamycin phosphate 1 % topical 1 applic topical BID #60 mL 04/24/25 04/30/25 Rx solution doxycycline monohydrate 100 mg 100 mg PO BID 10 days #20 tabs 04/24/25 04/30/25 Rx tablet Allergies Allergy/AdvReac Type Severity Reaction Status Date / Time latex Allergy Mild Rash Verified 04/30/25 13:12 Exam Const: General: cooperative, healthy appearing and comfortable Nutritional Appearance: overweight Orientation/consciousness: oriented to person, oriented to place and oriented to time HENMT: Head: normal to inspection Resp: Effort & Inspection: normal respiratory effort Cardio: Rate: regular rate Rhythm: regular rhythm Heart sounds: S1 n ormal heart sound present and S2 normal heart sound present GI: Inspection: normal to inspection : External Female Exam: normal external appearance Speculum Exam - Vagina: normal appearance of the vagina Speculum Exam - Cervix: normal a ppearance of the cervix Bimanual exam- vagina & uterus: Uterine tenderness Bimanual Exam- Adnexa, other: Adnexal mass present bilaterally Assessment and Plan Assessment and plan (1) Pelvic pain: Code(s): R10.2 - Pelvic and perineal pain Status: Acute Plan Will proceed with diagnostic laparoscopy
[2025-05-03] VITALS (8 sets, daily range): BP systolic 86–118; BP diastolic 49–80; PULSE 84–100; RESP 14–21; TEMP 36.3–36.9; O2SAT 98–100
--- OUTSIDE RECORDS SUMMARY | 2025-05-03 00:52 | XMS_ITS | Clinical Summary ---
Author Organization [facility] Address [address] [place] [address] Care Team Providers Care Powder Mixer Name Role Phone Adelso Gonzales MD Primary Care Provider [phone] Medications No known medications Social History Tobacco Use Types Packs/Day Years Used Date Smoking Tobacco: Never Smokeless Tobacco: Never Tobacco Cessation:Counseling Given: Not Answered Comments Unknown Sex and Gender Information Value Date Recorded Sex Assigned at Not on file Legal Sex Female 8:00 PM CDT Gender Identity Not on file Sexual Orientation Not on file Last Filed Vital Signs Vital Sign Reading Time Taken Comments Blood Pressure 119/69 07/31/2024 11:49 PM CDT Pulse 87 07/31/2024 11:49 PM CDT Temperature 36.1 C (97 F) 07/31/2024 11:49 PM CDT Respiratory Rate 18 07/31/2024 11:49 PM CDT Oxygen Saturation 98% 07/31/2024 11:49 PM CDT Inhaled Oxygen Concentration - - Weight 86.2 kg (190 lb) 07/31/2024 7:30 PM CDT Height 162.6 cm (5' 4) 07/31/2024 7:30 PM CDT Body Mass Index 32.61 07/31/2024 7:30 PM CDT Plan of Treatment Health Maintenance Due Date Last Done Comments Cervical Cancer Screening Pap Smear (Age 21 to 29) Every 3 Years 1998 Cervical Cancer Screening 1998 Annual Physical 2001 Hepatitis C 2016 HPV Vaccines (3 - 3-dose series) 03/27/2016 01/03/2016, 07/16/2015 COVID-19 Vaccine (1 - 2024-25 season) 2024 DTaP, Tdap and Td Vaccines (8 - Td or Tdap) 02/16/2029 02/16/2019, 06/15/2012, 06/12/2003, Additional history exists Hepatitis B Vaccines Completed 04/16/1999, 1998, 1998 Meningococcal Vaccine Completed 07/16/2015 Meningococcal B Vaccine Aged Out No l onger eligible based on patient's age to complete this topic Pneumococcal Vaccine: Pediatrics (0 to 5 Years) and At-Risk Patients (6 to 49 Years) Aged Out No longer eligible based on patient's age to complete this topic RSV Immunizations Under 20 Months Aged Out No longer eligible based on patient's age to complete this topic Insurance Care Teams Powder Mixer Relationship Specialty Start Date End Date Adelso Gonzales MD [address] [place] [address] PCP - General FAMILY PRACTICE 07/31/24
--- OUTSIDE RECORDS SUMMARY | 2025-05-03 00:52 | XMS_ITS | Encounter Summary ---
Author Organization [facility] Address [address] [place] [address] Care Team Providers Care Supervisor M[employer] Name Role Phone Adelso Gonzales MD Primary Care Provider [phone] Encounter Details Date Type Department Care Team (Late st Contact Info) Description 04/22/2019 Abstract SFL CONVERSION [address] [place] [address] , Generic ConversionMD Social History Tobacco Use Types Packs/Day Years Used Date Smoking Tobacco: Never Assessed Comments Unknown Sex and Gender Information Value Date Recorded Sex Assigned at Not on file Legal Sex Female 8:00 PM CDT Gender Identity Not on file Sexual Orientation Not on file documented as of this encounter Plan of Treatment Not on file documented as of this encounter Visit Diagnoses Not on filedocumented in this encounter Care Teams Supervisor Meter [employer] Shop Relationship Specialty Start Date End Date Adelso Gonzales MD [address] [place] [address] PCP - General FAMILY PRACTICE 07/31/24 documented as of this encounter
--- NOTE | 2025-05-03 03:27 | WPDHPUPDATE1 ---
History and Physical Update Update Date/Time: 05/03/25 03:27 History and Physical has been reviewed, including an updated exam of the patient. There are NO changes in the patient's condition. Risks, benefits, and alternatives have been discussed and questions answered. Patient agrees to proceed with procedure.
[2025-05-03] MEDS: LACTATED RINGERS 1,000 ML 30 ML IV CONT (06:45)
--- NOTE | 2025-05-03 06:51 | WPDANESEPPF ---
Anes - Initial Pre Proc Eval Procedure: Operation Date: 05/03/25 07:30 Proposed Procedures p Diagnostic Laparoscopy - Rufus Carmona MD Date/Time: 05/03/25 06:51 Surgeon: Rufus Carmona MD Pre Op Diagnosis: pelvic pain, dyspareunia, endometriosis Patient Data Age: 25 Gender: F Height: 1.63 m Weight: 86.8 kg Allergies Allergy/AdvReac Type Severity Reaction Status Date / Time latex Allergy Mild Rash Verified 04/30/25 13:12 Home Medications ?Medication ?Instructions ?Recorded ?Confirmed ?Type albuterol sulfate 90 mcg/actuation See Rx Instructions .Route 07/06/22 04/30/25 Rx aerosol inhaler .COMPLEX #8.5 ea ferrous sulfate 325 mg (65 mg 325 mg PO DAILY #30 tabs 08/03/24 04/30/25 Rx iron) tablet fluticasone propionate 50 See Rx Instructions .Route 12/11/24 04/30/25 Rx mcg/actuation nasal .COMPLEX #16 mL spray,suspension venlafaxine 150 mg See Rx Instructions .Route 04/04/25 04/30/25 Rx capsule,extended release 24 hr .COMPLEX #30 caps clindamycin phosphate 1 % topical 1 applic topical BID #60 mL 04/24/25 04/30/25 Rx solution doxycycline monohydrate 100 mg 100 mg PO BID 10 days #20 tabs 04/24/25 04/30/25 Rx tablet hydrocodone 5 mg-acetaminophen 325 1 tablet PO Q4H PRN pain #20 tabs 05/03/25 Rx mg tablet Patient hx anesthesia problems: none Family hx anesthesia problems: none Results Review: All pre-operative results and documents have been reviewed as part of the pre-operative evaluation. [facility] Past Medical History Medical History Overweight Depression Asthma Mild severity; childhood asthma Surgical History Surgical History No significant past surgical history Family History Family History Mother Diabetes mellitus Father Parkinson disease Other Patient's father is Social History Social History Smoking status: Never smoker Tobacco type: cigarettes Alcohol intake: current Substance use: never Substance use type: does not use Lack of Transportation: No Lack of Food: Never True Current Housing: I Do Not Have Housing Concerned About Future Housing: No Difficulty Paying Gas/Electric Bills: No Difficulty Paying for Meds: No Currently Unemployed: No Education: High School Diploma/GED Difficulty w/ Childcare or Family Care: No Living arrangements: with family Additional living arrangements comments: Has one child. Spiritual care concerns: No Anes - Eval Final PreProcedure Day of Procedure 05/03/25 06:51 Patient weight: obese Heart: regular rate and rhythm Lungs: clear to auscultation Airway: Mallampati scale class II Neurological: alert and oriented Last oral intake: >/= 8 hours ASA classification: II Emergent: no Anesthetic plan: proceed Anesthesia type and monitoring: general ETT and standard monitoring Results Review: All pre-operative results and documents have been reviewed as part of the pre-operative evaluation. Informed Consent: The patient's anesthetic plan and its attendant risks and benefits were discussed with the patient/family/POA. Questions were solicited and answers provided to the satisfaction of the patient/family/POA.
[2025-05-03] MEDS: ACETAMINOPHEN 500 MG TABLET 1000 MG PO (07:00)
[2025-05-03] MEDS: KETOROLAC 15 MG/ML VIAL (*BKC) IV PUSH (07:00)
[2025-05-03] MEDS: SCOPOLAMINE 1 MG PATCH 1 PATCH TRANSDERM (07:00)
[2025-05-03 07:29] LABS: BEDSIDEPREGUCG Negative (Negative)
--- NOTE | 2025-05-03 07:56 | W.PM.PROC2 ---
Procedure Note - Detailed Date of Procedure 05/03/25 Pre-op Diagnosis pelvic pain, dyspareunia, endometriosis Post-op Diagnosis Same Procedure Performed Laparoscopy with destruction of endometriosis and destruction of bilateral ovarian cysts Surgeon Rufus Carmona MD Anesthesia General Indications This is a 25 year with pelvic pain and dyspareunia Findings Endometriosis for blister powder form each uterosacral ligament. Bilateral simple ovarian cyst. Normal-appearing appendix gallbladder liver Description of Procedure The patient was prepped draped in the sterile fashion placed dorsal lithotomy position. Endotracheal anesthesia weighted speculum placed in posterior fornix vagina. Anterior lip of the cervix grasped with single-tooth. Mcfadden's cannula inserted the cervix and attached to the single-tooth to be used later for uterine manipulation. After emptying the bladder of about 400cc of clear urine the weighted speculum was removed the gloves were changed. A supraumbilical incision made the Veress needle passed in the abdomen. Abdomen filled with CO2 gas [id number]. 5mm trocar advanced with the Optiview and no injury seen. Patient placed in Trendelenburg and a suprapubic incision made. The 5mm trocar advanced under direct visualization assuring injury. The above findings were noted using electric cautery at 35 w per 2nd with the monopolar cautery these areas were point cauterized without difficulty. Irrigation undertaken bilateral ovarian cysts were noted these appeared simple in nature and they were drained of clear follicular fluid photo documentation was undertaken the remainder the pelvis lower site removed. The gas removed from the abdomen the upper site removed the incisions closed with 4-0 Monocryl glue the patient was awakened went recovery in satisfactory condition. All sponge, needle, instrument counts were correct. There were no immediate complications Estimated Blood Loss 5 Drains No Packing No Pathology None sent Complications No immediate complications Condition Stable Disposition PACU
== END 2025-05-03 09:57 | disposition home or self-care (01) ==
PROVIDERS: PCP Nurse Practitioner Family; Visit Provider Obstetrics & Gynecology
PROC: (CPT 49320; principal; 2025-05-03 07:30)
DX: N80.3C3 Endometriosis of bilateral uterosacral ligament(s), unspecified depth (principal); N83.292 Other ovarian cyst, left side; N83.291 Other ovarian cyst, right side; R10.2 Pelvic and perineal pain; N94.10 Unspecified dyspareunia; E66.9 Obesity, unspecified; Z68.34 Body mass index [BMI] 34.0-34.9, adult
CPT/HCPCS: 58662; A9270; J1100; J1885; J2003; J2250; J2405; J2704; J3010; J7030; J7120

== ENCOUNTER 2025-08-01 12:47 | Outpatient (CLI) | payer OTHER, SELFPAY ==
[2025-08-01 13:26] LABS: Hematocrit 38.9 % (37.0-47.0); Hemoglobin 13.0 g/dL (12.0-15.0)
== END 2025-08-01 12:48 | disposition home or self-care (01) ==
LOC: ANHSURGERY 12:54
PROVIDERS: Anesthesiology; PCP Family Medicine; Visit Provider Obstetrics & Gynecology
DX: Z01.812 Encounter for preprocedural laboratory examination (principal); D64.9 Anemia, unspecified; R10.2 Pelvic and perineal pain
CPT/HCPCS: 36415; 85014; 85018; 86850; 86900; 86901

== ENCOUNTER 2025-08-09 01:04 | Day surgery (SDC) | payer OTHER, SELFPAY ==
--- NOTE | 2025-07-27 13:04 | SUR.PREOP ---
Report to the Outpatient Waiting Room, entrance under the green pavilion located off [facility], at time _0830_ on date _08/09/2025_. Planned Procedure Time: _1030_.? Time changes happen often and if your time is changed the preop area will call you the afternoon before. - You and your visitor will be asked to self-screen and do not enter if you have any COVID symptoms. Please call surgeon if you need to reschedule. - A mask is optional within the hospital at this time. Patients may have clear liquids (water, carbonated beverages, clear teas, apple juice) until 3 hours prior to surgery with a maximum of 20 ounces. - No food from midnight until time of surgery and no smoking, or chewing tobacco (or any form of nicotine). No chewing gum, candy or mints. Take only the following medications with a SIP of water on the morning of surgery: _VENLAFAXINE_ DO NOT STOP ANY OF YOUR OTHER PRESCRIPTION MEDICATIONS PRIOR TO SURGERY EXCEPT THE FOLLOWING Hold all vitamins and supplements for 3 days per anesthesiologist. Medications to discontinue per physician _NA_ Date to take last dose_NA_ Please no make-up, nail stateless, hairspray, perfume, deodorant, or body powder the day of surgery.? No jewelry (including any body piercings) or valuables the day of surgery, leave them at home.? Please take a shower or bath the night before, or the morning of, surgery with an antibacterial soap.? Wear comfortable, loose fitting clothing. - Jewelry must be removed prior to entering the operating room.? Rings and piercings that are not removed may be cut off. - The hospital will not accept responsibility for valuables.? - Please leave all valuables, including medications, at home the day of surgery. If you are going home after surgery, a licensed logging truck driver must drive you home.? - NO public transportation without another adult if you receive anesthesia. - We recommend that an adult stay with you for 24 hours following discharge. - We also recommend that you do not drive, make important decision, drink alcoholic beverages, or take any drugs that were not prescribed by your health care provider for at least 24 hours after your discharge time. Follow any additional instructions given to you from your surgeon. Telephone instructions given to _JACK_and asked if any additional questions and then verbalized understanding. Patient advised to call surgeon office or pre surgery nurse liaison [phone] if any additional questions.
[2025-07-27 13:12] VITALS: BMI 35.2
--- NOTE | 2025-08-07 11:42 | P.HP_ITS ---
H&P: HPI History of Present Illness Date/Time: 08/07/25 11:42 Chief Complaint: Pelvic pain and right ovarian cyst Narrative: This is a 25-year-old 2 para 2 with severe pelvic pain and a moderate size right ovarian cyst. She has had pain dyspareunia that she cannot take any. 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 She received the ACOG handout entitled laparoscopy. She had all questions answered. She asked to proceed Review of Systems Review of Systems: All systems reviewed & are unremarkable except as noted in HPI and below PMFSH Past Medical History Medical History (Updated 08/07/25 @ 11:45 by Rufus Carmona MD) Overweight Depression Asthma Mild severity; childhood asthma Surgical History Surgical History No significant past surgical history Family History Family History Mother Diabetes mellitus Father Parkinson disease Other Patient's father is Social History Social History Smoking status: Never smoker Tobacco type: cigarettes Second hand tobacco smoke exposure: No Alcohol intake: never Substance use: current Substance use type: marijuana Other substance usage details: MARIJUANA EVERY OTHER DAY FOR PAIN Lack of Transportation: No Lack of Food: Never True Current Housing: I Do Not Have Housing Concerned About Future Housing: No Difficulty Paying Gas/Electric Bills: No Difficulty Paying for Meds: No Currently Unemployed: No Education: High School Diploma/GED Difficulty w/ Childcare or Family Care: No Living arrangements: with family Additional living arrangements comments: Has one child. Spiritual care concerns: No Meds Home Medications and Allergies Home Medications ?Medication ?Instructions ?Recorded ?Confirmed ?Type albuterol sulfate 90 mcg/actuation See Rx Instructions .Route 07/06/22 07/27/25 Rx aerosol inhaler .COMPLEX #8.5 ea ferrous sulfate 325 mg (65 mg 325 mg PO DAILY #30 tabs 08/03/24 07/27/25 Rx iron) tablet fluticasone propionate 50 See Rx Instructions .Route 0 12/11/24 07/27/25 Rx mcg/actuation nasal .COMPLEX #16 mL spray,suspension venlafaxine 150 mg See Rx Instructions .Route 0 08/02/25 Rx capsule,extended release 24 hr .COMPLEX #90 caps Allergies Allergy/AdvReac Type Severity Reaction Status Date / Time latex Allergy Mild Rash Verified 07/27/25 12:55 Exam Const: General: cooperative, healthy appearing, comfortable and overweight Orientation/consciousness: oriented to person, oriented to place and oriented to time Resp: Effort & Inspection: normal respiratory effort Cardio: Rate: regular rate Rhythm: regular rhythm Heart sounds: S1 normal heart sound present and S2 normal heart sound present GI: Inspection: normal to inspection and obesity Auscultation: normal bowel sounds : External Female Exam: normal external appearance Speculum Exam - Vagina: normal appearance of the vagina Speculum Exam - Cervix: normal appearance of the cervix Bimanual exam- vagina & uterus: enlarged and Uterine tenderness Bimanual Exam- Adnexa, other: tender bilaterally Assessment and Plan Assessment and plan (1) Pelvic pain: Code(s): R10.2 - Pelvic and perineal pain Status: Acute (2) Right ovarian cyst: Code(s): N83.201 - Unspecified ovarian cyst, right side Status: Acute Plan Proceed with laparoscopy right ovarian cystectomy
[2025-08-09] VITALS (8 sets, daily range): BP systolic 101–122; BP diastolic 67–81; PULSE 71–93; RESP 16–24; TEMP 36.7–36.8; O2SAT 94–100
--- OUTSIDE RECORDS SUMMARY | 2025-08-09 01:07 | XMS_ITS | Clinical Summary ---
Author Organization [facility] Address [address] [place] [address] Care Team Providers Care Cloth Stretcher Name Role Phone Adelso Gonzales MD Primary Care Provider [phone] Medications No known medications Social History Tobacco [...] 07/16/2015 COVID-19 Vaccine (1 - 2024-25 season) 2025 DTaP, Tdap and Td Vaccines (8 - [...] to complete this topic Insurance Care Teams Cloth Stretcher Relationship Specialty Start Date End Date Adelso Gonzales MD [address] [place] [address] PCP - General FAMILY PRACTICE 07/31/24
[2025-08-09] MEDS: KETOROLAC 15 MG/ML VIAL (*BKC) IV PUSH (06:32)
[2025-08-09] MEDS: ACETAMINOPHEN 500 MG TABLET 1000 MG PO (06:32)
--- NOTE | 2025-08-09 06:35 | WPDHPUPDATE1 ---
History and Physical Update Update Date/Time: 08/09/25 06:35 History and Physical has been reviewed, including an updated exam of the patient. There are NO changes in the patient's condition. Risks, benefits, and alternatives have been discussed and questions answered. Patient agrees to proceed with procedure.
--- NOTE | 2025-08-09 06:51 | P.PNAN_ITS ---
Anes - Initial Pre Proc Eval Procedure: Operation Date: 08/09/25 07:30 Proposed Procedures p Laparoscopic Right Ovarian Cystectomy - Rufus Carmona MD Date/Time: 08/09/25 06:51 Surgeon: Rufus Carmona MD Pre Op Diagnosis: PELVIC PAIN, RT OVARIAN CYST Patient Data Age: 25 Gender: F Height: 1.63 m Weight: 91.85 kg Last Vital Signs Temp 36.8 C 08/09/25 06:10 Pulse 93 08/09/25 06:10 Resp 16 08/09/25 06:10 BP 121/81 08/09/25 06:10 Pulse Ox 98 08/09/25 06:10 O2 Del Method Room Air 08/09/25 06:10 Allergies Allergy/AdvReac Type Severity Reaction Status Date / Time latex Allergy Mild Rash Verified 08/09/25 06:03 Home Medications ?Medication ?Instructions ?Recorded ?Confirmed ?Type albuterol sulfate 90 mcg/actuation See Rx Instructions .Route 07/06/22 07/27/25 Rx aerosol inhaler .COMPLEX #8.5 ea ferrous sulfate 325 mg (65 mg 325 mg PO DAILY #30 tabs 08/03/24 08/09/25 Rx iron) tablet fluticasone propionate 50 See Rx Instructions .Route 0 12/11/24 08/09/25 Rx mcg/actuation nasal .COMPLEX #16 mL spray,suspension venlafaxine 150 mg See Rx Instructions .Route 0 08/02/25 08/09/25 Rx capsule,extended release 24 hr .COMPLEX #90 caps hydrocodone 5 mg-acetaminophen 325 1 tablet PO Q4H PRN pain #20 tabs 08/09/25 Rx mg tablet Patient hx anesthesia problems: none Family hx anesthesia problems: none Results Review: All pre-operative results and documents have been reviewed as part of the pre- operative evaluation. [facility] Past Medical History Medical History (Updated 08/09/25 @ 06:51 by Rufus Thakkar MD) Obesity Depression Asthma Mild severity; childhood asthma Surgical History Surgical History (Updated 08/09/25 @ 06:51 by Rufus Thakkar MD) H/O laparoscopy Family History Family History Mother Diabetes mellitus Father Parkinson disease Other Patient's father is Social History Social History (Updated 08/09/25 @ 06:52 by Rufus Thakkar MD) Smoking status: Former smoker Tobacco type: cigarettes Second hand tobacco smoke exposure: No Alcohol intake: never Substance use: current Substance use type: marijuana Other substance usage details: MARIJUANA EVERY OTHER DAY FOR PAIN Lack of Transportation: No Lack of Food: Never True Current Housing: I Do Not Have Housing Concerned About Future Housing: No Difficulty Paying Gas/Electric Bills: No Difficulty Paying for Meds: No Currently Unemployed: No Education: High School Diploma/GED Difficulty w/ Childcare or Family Care: No Living arrangements: with family Additional living arrangements comments: Has one child. Spiritual care concerns: No Anes - Eval Final PreProcedure Day of Procedure 08/09/25 06:51 Patient weight: obese Heart: regular rate and rhythm Lungs: clear to auscultation Airway: Mallampati scale class II Neurological: alert and oriented Last oral intake: >/= 8 hours ASA classification: II Emergent: no Anesthetic plan: proceed Anesthesia type and monitoring: general ETT and standard monitoring Results Review: All pre-operative results and documents have been reviewed as part of the pre-operative evaluation. Informed Consent: The patient's anesthetic plan and its attendant risks and benefits were discussed with the patient/family/POA. Questions were solicited and answers provided to the satisfaction of the patient/family/POA.
--- NOTE | 2025-08-09 07:55 | P.OP_ITS ---
Procedure Note - Detailed Date of Procedure 08/09/25 Pre-op Diagnosis PELVIC PAIN, RT OVARIAN CYST Post-op Diagnosis Same Procedure Performed Laparoscopy with right ovarian cyst destruction lysis of adhesions Surgeon Rufus Carmona MD Anesthesia General Indications This is a 25-year-old female admitted for laparoscopy secondary to pelvic pain on right with the ovarian cyst. Findings Normal-appearing left ovary and tube. Normal-appearing uterus. Normal-a ppearing appendix gallbladder liver edge. Multiple adhesions from the colon to right lateral sidewall. Some small follicular cyst with possibly endometriosis on the surface of the right ovary. Description of Procedure Patient was prepped draped in normal sterile fashion placed in the dorsal lithotomy position. Under excellent general trach anesthesia weighted speculum placed posterior fornix vagina. Anterior lip of the cervix grasped with a single-tooth tenaculum. Mcfadden's cannula inserted the cervix attached to the single-tooth to be used later for uterine manipulation. After emptying the bladder of clear urine the weighted speculum was removed. The gloves were changed A supraumbilical incision made the Veress needle passed in the abdomen. Abdomen filled with CO2 gas [id number]. The 5mm trocar advanced under direct visualization with the Optiview and no injury seen. Patient placed in Trendelenburg and a suprapubic incision made. The 5mm trocar advanced under direct visualization assuring no injury. Adhesions were seen from the colon to the right lateral sidewall. Sharp dissection was used and this relieved were fairly dense adhesions. The appendix gallbladder liver edge otherwise appeared within normal limits. There is a small spot of what appeared to be endometriosis which was cauterized without difficulty. The ovarian cysts were opened in linear fashion and drained of clear fluid. No other abnormalities were seen. Irrigation was undertaken. The patient was returned to flat state. The trocars removed after gas removed the. Incisions closed with 4. Instruments removed from the vagina. The patient awakened went recovery in satisfactory condition. All sponge, needle, instrument counts were correct. T here were no immediate complications Estimated Blood Loss 5 Drains No Packing No Pathology None sent Complications No immediate complications Condition Stable Disposition PACU
[2025-08-09] MEDS: LACTATED RINGERS 1,000 ML 30 ML IV CONT ×2 (08:03)
[2025-08-09] MEDS: fentaNYL CITRATE INJ (*CRX) 100 MCG/2 ML VIAL 25 MCG IV PUSH ×2 (08:34→08:38)
[2025-08-09] MEDS: SCOPOLAMINE 1 MG PATCH 1 PATCH TRANSDERM (08:36)
== END 2025-08-09 09:46 | disposition home or self-care (01) ==
PROVIDERS: PCP Family Medicine; Visit Provider Obstetrics & Gynecology
PROC: (CPT 49320; principal; 2025-08-09 07:30)
DX: N83.01 Follicular cyst of right ovary (principal); N73.6 Female pelvic peritoneal adhesions (postinfective); J45.909 Unspecified asthma, uncomplicated; F32.A Depression, unspecified; F12.90 Cannabis use, unspecified, uncomplicated; E66.9 Obesity, unspecified; Z68.34 Body mass index [BMI] 34.0-34.9, adult; Z79.51 Long term (current) use of inhaled steroids; Z79.891 Long term (current) use of opiate analgesic; Z87.891 Personal history of nicotine dependence
CPT/HCPCS: 58662; A9270; J1100; J1885; J2003; J2250; J2405; J2704; J3010; J7120